=== PATIENT | female | born 1955 ===

== ENCOUNTER 2019-03-13 18:45 | Outpatient (REF) | payer BC, SELFPAY | END 2019-03-13 19:05 | LOC: NCHCN 18:45 | PROVIDERS: PCP Internal Medicine; Visit Provider Internal Medicine | DX: Z00.00 Encounter for general adult medical examination without abnormal findings (principal); Z13.29 Encounter for screening for other suspected endocrine disorder | CPT/HCPCS: 84443 ==

== ENCOUNTER 2020-03-15 16:05 | Outpatient (REF) | payer BC, SELFPAY ==
--- NOTE | 2020-03-14 14:00 | PAPFT_PTH ---
PATIENT: Milena Flores LOC: [facility]#:[id number] AGE/SX: 65/F ROOM: RE03/15/[address]: Antoni Blake : 1955 BED: DIS: 03/15/2020 SPEC #: [id number] RECD: 03/15/20 13:00 STATUS: BLANCA RESabrina #: [id number] JASON: 03/14/20 14:[address]: Antoni Blake DEPT: [facility] Cytology RECD BY: Ania Amato Tissues: 1 - CX/ENDOCX FOR PAP SMEARS Procedures: PAP THIN PREP/[facility] Screening HPV DNA PROBE Comments: [id number]
[2020-03-14 19:36] LABS: CREATININE 0.89 mg/dL (0.55-1.02); LDL CHOLESTEROL 120 mg/dL (<100)
[2020-03-18 10:09] LABS: HSV Type 1 Ab, IgG Positive (Negative); HSV Type 2 Ab, IgG Negative (Negative)
[2020-03-18 10:15] LABS: Varicella IgG Antibody Positive (See Note)
== END 2020-03-15 16:25 ==
LOC: NCHCN 16:05
PROVIDERS: PCP Internal Medicine; Visit Provider Internal Medicine
DX: Z00.00 Encounter for general adult medical examination without abnormal findings (principal); Z11.59 Encounter for screening for other viral diseases; Z13.220 Encounter for screening for lipoid disorders; Z12.4 Encounter for screening for malignant neoplasm of cervix; Z11.51 Encounter for screening for human papillomavirus (HPV)
CPT/HCPCS: 83721; 86787; 88142; 82565; 86695; 86696; 87624

== ENCOUNTER 2021-10-06 16:04 | Outpatient (REF) | payer MEDICARE, SELFPAY ==
[2021-10-08 12:02] LABS: COVID-19 RT-PCR UVMMC Result Negative (Negative)
== END 2021-10-06 16:05 | disposition home or self-care (01) ==
LOC: NCHCN 16:04
PROVIDERS: PCP Internal Medicine; Visit Provider Nurse Practitioner Family
DX: Z20.822 Contact with and (suspected) exposure to COVID-19 (principal); R19.7 Diarrhea, unspecified
CPT/HCPCS: U0003; U0005